=== PATIENT | female | born 1970 | race Caucasian/White ===

== ENCOUNTER 2019-07-21 17:04 | Emergency (ER) | payer BC ==
[~2019-07-21] VITALS: Ht 149.9 cm; Wt 77.6 kg
[2019-07-21 17:09] VITALS: BP 127/70
--- NOTE | 2019-07-21 17:12 | NUR ---
PT AMB TO BED 3 WITH STEADY GAIT
--- NOTE | 2019-07-21 17:34 | NUR ---
48/F BIB SELF C/O EPIGASTRIC PAIN, MID ABD PAIN AND MIDDLE BACK PAIN X THIS AM. PAIN 8/10. DENIES N/V/D. LAST BM THIS AM, STRAINED.ABD SOFT. PATIENT POSITIONED FOR COMFORT; HOB ELEVATED; BEDRAILS UP X1; BED DOWN. ER MD MADE AWARE OF PT STATUS.
[2019-07-21 18:10] LABS: BASOPHILS % (AUTO) 0.2 % (0.0-2.0); EOSINOPHILS % (AUTO) 0.2 % (0.0-4.0); HEMATOCRIT 43.8 % (36-48); HEMOGLOBIN 14.7 g/dL (12.0-16.0); LYMPHOCYTES # (AUTO) 0.7 K/uL (2.5-16.5); LYMPHOCYTES % (AUTO) 5.5 % (20.5-51.1); MEAN CORPUSCULAR HEMOGLOBIN 31 pg (27-31); MEAN CORPUSCULAR HGB CONC 34 g/dL (33-37); MEAN CORPUSCULAR VOLUME 91.8 fL (80-94); MONOCYTES # (AUTO) 0.6 K/uL (0.8-1.0); MONOCYTES % (AUTO) 5.4 % (1.7-9.3); NEUTROPHILS # (AUTO) 10.6 K/uL (1.8-7.7); NEUTROPHILS % (AUTO) 88.7 % (42.2-75.2); PLATELET COUNT (AUTO) 151 K/uL (140-450); RED BLOOD CELL COUNT(AUTO) 4.77 MIL/uL (4.20-5.40); RED CELL DISTRIBUTION WIDTH 14.2 % (11.6-13.7)
[2019-07-21 18:12] LABS: BILIRUBIN,URINE 1+ (NEGATIVE); BLOOD, URINE 2+ (NEGATIVE); COLOR,URINE YELLOW (YELLOW); LEUKOCYTE ESTERASE ,URINE NEGATIVE (NEGATIVE); NITRITE, URINE NEGATIVE (NEGATIVE); UGLUCOSE 1+ (NEGATIVE)
[2019-07-21 18:19] LABS: APPEARANCE,URINE HAZY (CLEAR)
[2019-07-21 18:19] LABS: ANION GAP 11.9 (8-16); CARBON DIOXIDE 26.2 mmol/L (21-32); CREATININE 0.8 mg/dL (0.6-1.3); POTASSIUM 3.1 mmol/L (3.5-5.1)
[2019-07-21 18:22] LABS: RBC,URINE 0-5 /HPF (0-5)
[2019-07-21 18:23] LABS: WBC,URINE 0-5 /HPF (0-5)
[2019-07-21 18:25] LABS: TOTAL BILIRUBIN 0.8 mg/dL (0.0-1.0)
[2019-07-21] MEDS ORDERED: DICYCLOMINE HCL LIQUID 20 MG, ALUMINUM HYD/MAG/SIMETHICONE 30 ML, LIDOCAINE VISCOUS 2% ... PO ONE ×3 (18:30)
[2019-07-21] MEDS ORDERED: KETOROLAC 30 MG/ML VIAL IM ONE (18:30)
[2019-07-21 18:56] LABS: ALBUMIN 3.6 g/dL (3.4-5.0)
--- NOTE | 2019-07-21 19:09 | NUR ---
Ultrasound at bedside.
--- NOTE | 2019-07-21 19:12 | NUR ---
Pt report given to CHANA COLON. Transfer of care at this time.
--- NOTE | 2019-07-21 20:53 | NUR ---
Dr. Lara examining patient.
[2019-07-21 21:27] VITALS: BP 110/62
== END 2019-07-21 21:26 | disposition home or self-care (01) ==
LOC: MED 17:04
DX: R10.13 Epigastric pain (principal); M54.9 Dorsalgia, unspecified; Z98.890 Other specified postprocedural states
CPT/HCPCS: 36415; 76705; 80053; 81001; 81025; 83690; 84484; 85025; 93005; 96372; 99284; J1885; Q0092

== ENCOUNTER 2020-01-30 01:20 | Inpatient (IN) | payer BC, OTHER ==
[~2020-01-30] VITALS: Ht 152.4 cm; Wt 63.5 kg
[2020-01-30 01:26] VITALS: BP 108/54
[2020-01-30] MEDS ORDERED: DICYCLOMINE HCL LIQUID 20 MG, ALUMINUM HYD/MAG/SIMETHICONE 30 ML, LIDOCAINE VISCOUS 2% ... PO ONE ×3 (02:05)
[2020-01-30] MEDS ORDERED: KETOROLAC 30 MG/ML VIAL IM ONE (02:05)
[2020-01-30] MEDS ORDERED: LIDOCAINE VISCOUS 2% 20 ML UDC ONE (02:10)
[2020-01-30] MEDS ORDERED: ALUMINUM HYD/MAG/SIMETHICONE 30 ML UDC ONE (02:10)
[2020-01-30] MEDS ORDERED: DICYCLOMINE HCL LIQUID 10 MG/5 ML UDC ONE (02:10)
[2020-01-30 02:18] LABS: BASOPHILS % (AUTO) 0.8 % (0.0-2.0); EOSINOPHILS # (AUTO) 0.1 K/uL (0-0.4); EOSINOPHILS % (AUTO) 0.9 % (0.0-4.0); HEMATOCRIT 41.2 % (36-48); LYMPHOCYTES # (AUTO) 0.8 K/uL (2.5-16.5); LYMPHOCYTES % (AUTO) 14.2 % (20.5-51.1); MEAN CORPUSCULAR HEMOGLOBIN 31 pg (27-31); MEAN CORPUSCULAR HGB CONC 34 g/dL (33-37); MEAN CORPUSCULAR VOLUME 90.5 fL (80-94); MONOCYTES # (AUTO) 0.4 K/uL (0.8-1.0); MONOCYTES % (AUTO) 6.9 % (1.7-9.3); NEUTROPHILS # (AUTO) 4.2 K/uL (1.8-7.7); NEUTROPHILS % (AUTO) 77.2 % (42.2-75.2); PLATELET COUNT (AUTO) 259 K/uL (140-450); RED BLOOD CELL COUNT(AUTO) 4.55 MIL/uL (4.20-5.40); WHITE BLOOD COUNT (AUTO) 5.5 K/uL (4.8-10.8)
[2020-01-30 02:32] LABS: ALBUMIN 3.4 g/dL (3.4-5.0); ANION GAP 13.4 (8-16); CARBON DIOXIDE 29.5 mmol/L (21-32); CREATININE 0.8 mg/dL (0.6-1.3); POTASSIUM 3.9 mmol/L (3.5-5.1); TOTAL BILIRUBIN 1.5 mg/dL (0.0-1.0)
[2020-01-30] MEDS ORDERED: MORPHINE SULFATE 4 MG/ML SYR IVP ONE (05:05)
[2020-01-30] MEDS ORDERED: ONDANSETRON 4 MG/2 ML VIAL IVP ONE (05:05)
[2020-01-30] MEDS ORDERED: NACL 0.9% 1,000 ML IV ONE (05:05)
[2020-01-30] MEDS ORDERED: cefTRIAXone 1,000 MG VIAL ONE (05:20)
[2020-01-30] MEDS ORDERED: ACETAMINOPHEN 325 MG TAB PO PRN (05:50)
[2020-01-30] MEDS ORDERED: ONDANSETRON 4 MG/2 ML VIAL IVP PRN ×2 (05:50→16:20)
[2020-01-30] MEDS ORDERED: DEXT 5% /NACL 0.9% 1,000 ML IV ONE (05:50)
[2020-01-30] MEDS ORDERED: HYDROcodone/APAP 7.5/325 MG 1 TAB PO PRN (05:50)
[2020-01-30 06:45] VITALS: BP 114/75
[2020-01-30 07:19] LABS: PROTHROMBIN TIME 9.7 secs (10.8-13.4)
[2020-01-30 07:29] LABS: FREE T4 (FREE THYROXINE) 1.33 ng/dL (0.76-1.46); MAGNESIUM 2.2 mg/dL (1.8-2.4); PHOSPHORUS 4.2 mg/dL (2.5-4.9); THYROID STIMULATING HORMONE 2.11 uIU/mL (0.34-3.74)
[2020-01-30] MEDS: metroNIDAZOLE 500 MG/NS PREMIX 100 ML IV SCH ×3 (08:23→21:33)
[2020-01-30] MEDS: DOCUSATE SODIUM 100 MG GELCAP PO SCH ×2 (08:24→21:00)
[2020-01-30 08:28] LABS: CHOL/HDL RATIO 4.9 (1-4.5)
[2020-01-30] MEDS ORDERED: metroNIDAZOLE 500 MG/NS PREMIX 100 ML IV SCH (13:00)
[2020-01-30] MEDS ORDERED: LIDOCAINE 1% 500 MG/50 ML VIAL ONE (13:28)
[2020-01-30] MEDS ORDERED: BUPIVACAINE-MPF/EPI 0.25% 10 ML VIAL INJ ONE (13:29)
[2020-01-30 14:24] LABS: BILIRUBIN,URINE 2+ (NEGATIVE); BLOOD, URINE NEGATIVE (NEGATIVE); COLOR,URINE YELLOW (YELLOW); LEUKOCYTE ESTERASE ,URINE TRACE (NEGATIVE); NITRITE, URINE NEGATIVE (NEGATIVE); UGLUCOSE NEGATIVE (NEGATIVE)
[2020-01-30 14:30] LABS: APPEARANCE,URINE HAZY (CLEAR)
[2020-01-30] MEDS ORDERED: LIDOCAINE 2% 100 MG/5 ML SYR IVP ONE (15:22)
[2020-01-30] MEDS ORDERED: DESFLURANE 240 ML BTL INH ONE (15:22)
[2020-01-30] MEDS ORDERED: SUCCINYLCHOLINE CHLORIDE 200 MG/10 ML VIAL IVP ONE (15:22)
[2020-01-30] MEDS ORDERED: ROCURONIUM 50 MG/5 ML VIAL IV ONE (15:22)
[2020-01-30] MEDS ORDERED: MIDAZOLAM 2 MG/2 ML VIAL ONE (15:22)
[2020-01-30] MEDS ORDERED: PROPOFOL 200 MG/20 ML VIAL IV ONE (15:22)
[2020-01-30] MEDS ORDERED: fentaNYL 0.05 MG/ML VIAL ONE (15:22)
[2020-01-30] MEDS ORDERED: DEXAMETHASONE 4 MG/ML VIAL ONE (15:22)
[2020-01-30] MEDS ORDERED: ONDANSETRON 4 MG/2 ML VIAL ONE (15:22)
[2020-01-30] MEDS ORDERED: KETOROLAC 30 MG/ML VIAL ONE (15:22)
[2020-01-30 15:23] LABS: BARBITURATE, URINE NEGATIVE ng/ml (NEG <=200); BENZODIAZEPINE, URINE NEGATIVE ng/mL (NEG <=200); CANNABINOID, URINE NEGATIVE ng/mL (NEG <=50); COCAINE, URINE NEGATIVE ng/mL (NEG <=300); OPIATE, URINE POSITIVE ng/mL (NEG <=2000); PHENCYCLIDINE SCREEN,URINE NEGATIVE ng/mL (NEG <=25)
[2020-01-30] MEDS ORDERED: HYDROmorphone 1 MG/ML AMP IVP PRN ×2 (16:20→18:10)
[2020-01-30] MEDS ORDERED: HYDROcodone/APAP 5/325 MG 1 TAB TAB PO PRN (18:10)
[2020-01-30 19:30] VITALS: BP 120/70
[2020-01-30 21:52] LABS: RBC,URINE NONE SEEN /HPF (0-5)
[2020-01-30 21:53] LABS: WBC,URINE 0-5 /HPF (0-5)
[2020-01-30 22:00] VITALS: BP 116/65
[2020-01-31] VITALS: BP 104/55
[2020-01-31] MEDS: metroNIDAZOLE 500 MG/NS PREMIX 100 ML IV SCH ×3 (04:08→21:08)
[2020-01-31 06:45] LABS: ANION GAP 12.4 (8-16); CARBON DIOXIDE 26.7 mmol/L (21-32); CREATININE 0.8 mg/dL (0.6-1.3); POTASSIUM 4.1 mmol/L (3.5-5.1)
[2020-01-31 06:49] LABS: BASOPHILS # (AUTO) 0.1 K/uL (0.00-0.22); BASOPHILS % (AUTO) 1.1 % (0.0-2.0); EOSINOPHILS % (AUTO) 0.1 % (0.0-4.0); HEMATOCRIT 36.3 % (36-48); HEMOGLOBIN 12.2 g/dL (12.0-16.0); LYMPHOCYTES # (AUTO) 0.4 K/uL (2.5-16.5); LYMPHOCYTES % (AUTO) 5.5 % (20.5-51.1); MEAN CORPUSCULAR HEMOGLOBIN 31 pg (27-31); MEAN CORPUSCULAR HGB CONC 34 g/dL (33-37); MEAN CORPUSCULAR VOLUME 91.5 fL (80-94); MONOCYTES # (AUTO) 0.6 K/uL (0.8-1.0); MONOCYTES % (AUTO) 7.1 % (1.7-9.3); NEUTROPHILS # (AUTO) 6.7 K/uL (1.8-7.7); NEUTROPHILS % (AUTO) 86.2 % (42.2-75.2); PLATELET COUNT (AUTO) 244 K/uL (140-450); RED BLOOD CELL COUNT(AUTO) 3.96 MIL/uL (4.20-5.40); RED CELL DISTRIBUTION WIDTH 13.1 % (11.6-13.7); WHITE BLOOD COUNT (AUTO) 7.8 K/uL (4.8-10.8)
[2020-01-31 06:50] LABS: MAGNESIUM 1.6 mg/dL (1.8-2.4); PHOSPHORUS 2.8 mg/dL (2.5-4.9)
[2020-01-31 08:00] VITALS: BP 98/49
[2020-01-31] MEDS: ATORVASTATIN 20 MG TAB PO SCH (08:57)
[2020-01-31] MEDS: DOCUSATE SODIUM 100 MG GELCAP PO SCH ×2 (08:57→22:01)
[2020-01-31] MEDS ORDERED: MAGNESIUM OXIDE 400 MG TAB PO SCH (11:00)
[2020-01-31 12:54] LABS: ALBUMIN 2.9 g/dL (3.4-5.0); BILIRUBIN,DIRECT 1.7 mg/dL (0.0-0.3); TOTAL BILIRUBIN 2.5 mg/dL (0.0-1.0)
[2020-01-31 16:00] VITALS: BP 106/59
[2020-02-01] VITALS: BP 105/55
[2020-02-01] MEDS: metroNIDAZOLE 500 MG/NS PREMIX 100 ML IV SCH ×2 (05:26→13:28)
[2020-02-01 06:51] LABS: BASOPHILS % (AUTO) 0.5 % (0.0-2.0); EOSINOPHILS % (AUTO) 0.1 % (0.0-4.0); HEMATOCRIT 38.3 % (36-48); HEMOGLOBIN 12.8 g/dL (12.0-16.0); LYMPHOCYTES # (AUTO) 0.7 K/uL (2.5-16.5); LYMPHOCYTES % (AUTO) 8.7 % (20.5-51.1); MEAN CORPUSCULAR HEMOGLOBIN 31 pg (27-31); MEAN CORPUSCULAR HGB CONC 34 g/dL (33-37); MEAN CORPUSCULAR VOLUME 91.9 fL (80-94); MONOCYTES # (AUTO) 0.6 K/uL (0.8-1.0); MONOCYTES % (AUTO) 7.2 % (1.7-9.3); NEUTROPHILS # (AUTO) 7.2 K/uL (1.8-7.7); NEUTROPHILS % (AUTO) 83.5 % (42.2-75.2); PLATELET COUNT (AUTO) 224 K/uL (140-450); RED BLOOD CELL COUNT(AUTO) 4.17 MIL/uL (4.20-5.40); RED CELL DISTRIBUTION WIDTH 13.2 % (11.6-13.7); WHITE BLOOD COUNT (AUTO) 8.6 K/uL (4.8-10.8)
[2020-02-01 06:55] LABS: MAGNESIUM 1.6 mg/dL (1.8-2.4); PHOSPHORUS 2.8 mg/dL (2.5-4.9)
[2020-02-01 07:00] LABS: ANION GAP 12.3 (8-16); CARBON DIOXIDE 27.5 mmol/L (21-32); CREATININE 0.8 mg/dL (0.6-1.3); POTASSIUM 3.8 mmol/L (3.5-5.1)
[2020-02-01 08:00] VITALS: BP 98/66
[2020-02-01] MEDS: DOCUSATE SODIUM 100 MG GELCAP PO SCH (09:00)
[2020-02-01] MEDS: ATORVASTATIN 20 MG TAB PO SCH (09:29)
[2020-02-01] MEDS ORDERED: MAGNESIUM OXIDE 400 MG TAB PO SCH (11:00)
[2020-02-01 11:46] LABS: ALBUMIN 2.7 g/dL (3.4-5.0); BILIRUBIN,DIRECT 0.5 mg/dL (0.0-0.3); TOTAL BILIRUBIN 1.1 mg/dL (0.0-1.0)
[2020-02-01] MEDS ORDERED: PROPOFOL 200 MG/20 ML VIAL IV ONE (14:00)
[2020-02-01] MEDS ORDERED: fentaNYL 0.05 MG/ML VIAL ONE (14:00)
[2020-02-01] MEDS ORDERED: MIDAZOLAM 2 MG/2 ML VIAL ONE (14:00)
[2020-02-01] MEDS ORDERED: LACTATED RINGERS 1,000 ML IV SCH (14:18)
[2020-02-01] MEDS ORDERED: HYDROmorphone 1 MG/ML AMP IVP PRN (14:20)
[2020-02-01] MEDS ORDERED: MEPERIDINE 25 MG/ML SYR IVP PRN (14:20)
[2020-02-01] MEDS ORDERED: ONDANSETRON 4 MG/2 ML VIAL IVP PRN (14:20)
[2020-02-01] MEDS ORDERED: diphenhydrAMINE 50 MG/ML VIAL IVP PRN (14:20)
== END 2020-02-01 18:18 | disposition home or self-care (01) | DRG 417 ==
LOC: MED 01:20 → MTU 05:57
PROVIDERS: ADMIT General Practice; ATTEND General Practice
PROC: BF121ZZ Fluoroscopy of Gallbladder using Low Osmolar Contrast (ICD-10-PCS; 2020-01-30)
PROC: 0FT44ZZ Resection of Gallbladder, Percutaneous Endoscopic Approach (ICD-10-PCS; principal; 2020-01-30 15:00)
PROC: 0FC98ZZ Extirpation of Matter from Common Bile Duct, Via Natural or Artificial Opening Endoscopic (ICD-10-PCS; 2020-02-01)
PROC: BF131ZZ Fluoroscopy of Gallbladder and Bile Ducts using Low Osmolar Contrast (ICD-10-PCS; 2020-02-01)
PROC: 0F798ZZ Dilation of Common Bile Duct, Via Natural or Artificial Opening Endoscopic (ICD-10-PCS; 2020-02-01)
DX: K80.62 Calculus of gallbladder and bile duct with acute cholecystitis without obstruction (principal); E43 Unspecified severe protein-calorie malnutrition; R74.0 Nonspecific elevation of levels of transaminase and lactic acid dehydrogenase [LDH]; E78.5 Hyperlipidemia, unspecified; A08.4 Viral intestinal infection, unspecified; E66.3 Overweight; E83.42 Hypomagnesemia; K29.70 Gastritis, unspecified, without bleeding; Z68.27 Body mass index [BMI] 27.0-27.9, adult; K31.7 Polyp of stomach and duodenum
CPT/HCPCS: 36415; 71045; 74330; 76705; 77003; 80048; 80053; 80076; 80305; 81001; 81025; 82150; 83036; 83605; 83690; 83735; 83880; 84100; 84439; 84443; 84484; 85025; 85610; 85730; 87040; 87081; 88304; 96365; 96375; 99285; C1769; C1773; C1887; J0330; J0696; J1100; J1885; J2001; J2250; J2270; J2405; J2704; J3010; J3490; J7042; J7060; J7120; Q0092; Q9965